=== PATIENT | female | born 1935 | race Caucasian/White ===

== ENCOUNTER 2016-07-24 09:49 | Emergency (ER) | payer MEDICARE, BC ==
[~2016-07-24 09:49] MED LIST: ACTONEL5 MG; ADVAIR 100-501 EACH INH; AMOXICILLIN500 MG PO; ASPIRIN EC81 MG PO; BETAPACE80 M2 PO; CALCIUM 600 +1 EA12 PO; CARDIZEM CD240 MG PO; DARVOCET-N 1001 TAB PO; FOSAMAX70 M1 PO; IBUPAIN-200200 MG; LANOXIN125 MC3 PO; LEVAQUIN250 MG PO; LOPRESSOR100 M1 PO; METAMUCIL1 PKT PO; MIRALAX17 G2 PO; MULTIVITAMINS1 EAC6 PO; NORCO 5-325 TA1 EACH PO; NORVASC5 M1 PO; NORVASC5 MG PO; POLY-IRON150 M1 PO; PROTONIX40 M2 PO; SULFAMETHOXAZOLE PO; TYLENOL650 MG; VICODIN 5/500 T1 TAB PO; VITAMIN D31000 UNI3 PO; XARELTO20 M1 PO
[2016-07-24 10:02] LABS: URINE BILIRUBIN NEGATIVE (NEG); URINE BLOOD MODERATE (NEG); URINE GLUCOSE (UA) NEGATIVE (NEG); URINE KETONE NEGATIVE (NEG); URINE LEUKOCYTE ESTERASE POSITIVE (NEG); URINE NITRITE POSITIVE (NEG); URINE PROTEIN MODERATE (NEG)
[2016-07-24 10:11] LABS: URINE APPEARANCE CLOUDY; URINE COLOR YELLOW
[2016-07-24 10:12] LABS: BASO % 0.2 % (0-2); EOS % 2.6 % (0-7); EOSINOPHIL ABSOLUTE COUNT 0.1 tho/cmm (0.0-0.7); HGB-HEMOGLOBIN 13.4 gm/dl (12.0-15.5); IMMATURE GRANULOCYTES ABSOLUTE 0.01 tho/cmm (0-0.03); IMMATURE GRANULOCYTES PERCENT 0.2 % (0-0.3); LYMPH % 19.2 % (20-45); MCH (MEAN CORPUSCULAR HGB) 31.7 pg (28.0-32.0); MCHC MEAN CORPUSCULAR HGB CONC 34.4 % (32.0-36.0); MCV (MEAN CELL VOLUME) 92.2 fl (82.0-96.0); MEAN PLATELET VOLUME 9.9 cmc (9.4-12.4); MONO % 7.2 % (0-12); MONOCYTE ABSOLUTE COUNT 0.4 tho/cmm (0.0-1.2); NEUTROPHIL ABSOLUTE COUNT 3.7 tho/cmm (1.6-8.0); NEUTROPHIL-AUTOMATED 3.7 tho/cmm (1.6-8.0); NEUTROPHILS % 70.6 % (40-80); PLATELET COUNT 133 tho/cmm (150-450); RED BLOOD COUNT 4.23 mil/cmm (4.00-5.20); RED CELL DISTRIBUTION WIDTH 14.3 % (12.4-16.4); WHITE BLOOD COUNT 5.3 tho/cmm (4.0-10.0)
[2016-07-24 10:24] LABS: ANION GAP 10 mmol/L (0-20); BLOOD UREA NITROGEN 9 mg/dl (6-24); CALCIUM 9.6 mg/dl (8.5-10.5); CARBON DIOXIDE-VENOUS 28 mmol/L (22-32); CHLORIDE 105 mmol/l (96-110); CREATININE 0.78 mg/dl (0.50-1.10); GLUCOSE 93 mg/dL (70-110); POTASSIUM 3.8 mmol/L (3.7-5.1); SODIUM 139 mmol/L (135-145); eGFR VALUE FOR BLACK 84 mL/Min
[2016-07-24 10:24] LABS: URINE WBC FULL FIELD /[HPF] (0-5)
[2016-07-24 10:25] LABS: URINE BACTERIA 3+; URINE RBC 15-20 /[HPF] (0-5)
[2016-07-24] MEDS ORDERED: BACLOFEN10 M1 PO (10:41)
[2016-07-24] MEDS ORDERED: CEPHALEXIN500 M1 PO (11:27)
[2016-07-24] MEDS ORDERED: NORCO 5-325 TA1 EACH PO (11:27)
== END 2016-07-24 11:34 ==
LOC: EDMED 09:49
PROVIDERS: Emergency Medicine
DX: S22.089A Unspecified fracture of T11-T12 vertebra, initial encounter for closed fracture (principal); M54.5 Low back pain; I48.91 Unspecified atrial fibrillation; I10 Essential (primary) hypertension; I25.10 Atherosclerotic heart disease of native coronary artery without angina pectoris; Z90.49 Acquired absence of other specified parts of digestive tract; Z90.710 Acquired absence of both cervix and uterus; W19.XXXA Unspecified fall, initial encounter